=== PATIENT | female | born 1955 | race Caucasian/White ===

== ENCOUNTER 2016-11-21 13:00 | Day surgery (SDC) | payer OTHER ==
[~2016-11-21] VITALS: Ht 160 cm; Wt 102.5 kg
[~2016-11-21 13:00] MED LIST: 0.9% Sodium Chloride 1,000 ML IV SCH; FLUO40CA12 PO; Sodium Chloride LOK Flush 10 mL Syringe IV PRN; fentaNYL-PF 50 mCg/mL 2 mL Inj IVPUSH PRN; levothyroxine
[2016-11-21 13:47] VITALS: BP 126/66; PULSE 64; O2SAT 99
[2016-11-21 15:42] VITALS: BP 110/67; PULSE 64; RESP 16; O2SAT 98
[2016-11-21 15:52] VITALS: BP 124/66; PULSE 64; RESP 16; O2SAT 97
[2016-11-21 16:02] VITALS: BP 116/57; PULSE 61; RESP 16; O2SAT 99
--- NOTE | 2016-11-21 16:16 | ENDO ---
[address] [address] ENDOSCOPY PROCEDURE PATIENT: NOAH MUÑOZ : 1955 MR#: [id number] ADMIT: 11/21/2016 JOB ID: [id number] PROCEDURE: Esophagogastroduodenoscopy. INDICATION: Abdominal pain. Patient's ASA classification is II, Mallampati score is II. MEDICATIONS: Versed 7 mg, fentanyl 150 mcg. INSTRUMENT USED: GIF-H180J. PROCEDURE DETAILS: After informed consent was obtained, the patient was brought into the GI suite, where she was placed on oxygen via nasal cannula and monitored with continuous pulse oximeter, telemetry, and blood pressure monitoring. A time-out was performed. Then, she was placed in a left lateral decubitus position and a bite block was placed. Standard EGD scope was inserted through the bite block and advanced to the GE junction which was at approximately 35 cm. From 35 cm to 44 cm, there was a small gastric pouch. At 44 cm, there was an anastomosis consistent with a gastrojejunal anastomosis. The jejunal limb was then traversed to the maximum length of the scope. Was unremarkable. The short blind limb was also traversed and appeared to be duodenal mucosa which was unremarkable. The EGD scope was then withdrawn back into the gastric pouch. Multiple biopsies were obtained. Just at the anastomosis there were two samuel at the 7 o'clock position. The esophagus appeared unremarkable. IMPRESSION: 1. Changes consistent with gastric bypass. 2. Samuel at anastomosis, otherwise normal exam. RECOMMENDATIONS: 1. Await biopsy results. 2. Proceed to colonoscopy. PROCEDURE PERFORMED: Colonoscopy. INDICATION: Patient with a history of colon polyps. Please see above for ASA classification, Mallampati score, and medications. INSTRUMENT USED: [id number]-H180AL. Prep quality was fair. PROCEDURE DETAILS: After completion of the EGD exam, the patient was turned and a digital rectal exam was performed which was unremarkable. The colonoscope was then inserted into the rectum and advanced under direct visualization to the cecum, which was identified by the presence of the ileocecal valve and appendiceal orifice. Once the cecum was reached, the colonoscope was withdrawn back to the rectum. Mucosa and lumen were examined. In the rectum, retroflexion was performed. Following retroflexion, remaining air in the rectum was suctioned, and procedure was completed. FINDINGS: In the transverse colon, there was an approximately 5 mm sessile polyp that was removed with a cold snare. The remainder of the colon exam was otherwise unremarkable. IMPRESSION: Transverse colon polyp. RECOMMENDATIONS: Repeat colonoscopy pending polyp pathology results. COMPLICATIONS: None. ESTIMATED BLOOD LOSS: Less than 5 mL.
--- NOTE | 2016-11-24 14:38 | PATH ---
SURGICAL PATHOLOGY Attending Physician:Jaquan Danielle CASE STATUS: Signed Out PATIENT NAME: NOAH MUÑOZ PID: [id number] : 1955 DATE COLLECTED:11/21/2016 00:00 SPECIMEN: 1: Gastric, Biopsy 2: Colon, Polyp CLINICAL HISTORY: 1). GASTRIC POUCH BIOPSY 2). TRANSVERSE POLYP FINAL DIAGNOSIS: 1.GASTRIC POUCH, BIOPSY: GASTRIC ANTRUM WITH MILD CHRONIC GASTRITIS. Negative for Helicobacter organisms. Negative for intestinal metaplasia. No evidence of dysplasia or malignancy. 2.TRANSVERSE COLON POLYP: SESSILE SERRATED ADENOMA. ICD10 D12.6 GROSS DESCRIPTION: The specimens are received in formalin, labeled with the patient's name and sublabeled as the following: (1) gastric pouch; (2) trans polyp. (1) The specimen consists of multiple fragments of ashton-tee, glistening, semi-translucent tissue (0.8 x 0.5 x 0.2 cm in aggregate). Section code: (1A) tissue. Specimen entirely submitted. (2) The specimen consists of a fragment of ashton-white, glistening, semi-translucent tissue (0.7 x 0.2 by less than 0.1 cm). Section code: (2A) intact tissue. Specimen entirely submitted. ([id number]) MICRO DESCRIPTION: See diagnosis. ICD-9 CODES: CPT CODES: 1: 43435 2: 98852 Electronically Signed Out Loy Beaver MD [facility] Pathology [facility] [address], [place] [address] Technical component performed at [facility], [address] [place] [address] Ave[address], [place], [address]
== END 2016-11-21 23:59 | disposition home or self-care (01) ==
LOC: END 13:00
PROVIDERS: ATTEND Internal Medicine Gastroenterology
DX: Z12.11 Encounter for screening for malignant neoplasm of colon (principal); D12.3 Benign neoplasm of transverse colon; K29.50 Unspecified chronic gastritis without bleeding; R10.12 Left upper quadrant pain; E66.01 Morbid (severe) obesity due to excess calories; Z86.010 Personal history of colon polyps; Z80.0 Family history of malignant neoplasm of digestive organs; Z98.84 Bariatric surgery status; Z68.41 Body mass index [BMI] 40.0-44.9, adult
CPT/HCPCS: 43239; 45385; 99153; G0500; J2250; J3010; J7030